=== PATIENT | male | born 1975 | race Two or more races ===

== ENCOUNTER → 2022-12-02 | Emergency (ER) | payer OTHER ==
[~2022-12-02] VITALS: Ht 180.3 cm; Wt 68.0 kg
== END | disposition home or self-care (01) ==
LOC: ER 20:17
DX: S01.82XA Laceration with foreign body of other part of head, initial encounter (principal); W18.39XA Other fall on same level, initial encounter; Y93.89 Activity, other specified; Y92.488 Other paved roadways as the place of occurrence of the external cause

== ENCOUNTER → 2022-12-08 | Emergency (ER) | payer OTHER ==
[~2022-12-08] VITALS: Ht 180.3 cm; Wt 68.0 kg
== END | disposition home or self-care (01) ==
LOC: ER 08:29
DX: Z48.02 Encounter for removal of sutures (principal)